=== PATIENT | female | born 1995 | race Two or more races ===

== ENCOUNTER 2016-06-28 06:28 | Inpatient (IN) ==
[2016-06-28] MEDS ORDERED: SODIUM CHLORIDE 1,000 ML IV STA ×2 (06:40→12:07)
[2016-06-28] MEDS ORDERED: ZOFRAN 4 MG/2 ML IVP STA (06:41)
[2016-06-28 06:53] LABS: BASOPHILS # (AUTO) 0.1 K/uL (0-0.2); BASOPHILS % (AUTO) 0.3 % (0.0-3.0); EOSINOPHILS % (AUTO) 0.2 % (0.0-7.0); HEMATOCRIT 40.3 % (37.0-47.0); HEMOGLOBIN 13.5 g/dl (12.0-16.0); IMMATURE GRANULOCYTE % (AUTO) 0.3 % (0.0-5.0); LYMPHOCYTES # (AUTO) 1.7 K/uL (0.60-3.4); LYMPHOCYTES % (AUTO) 8.5 (10.0-50.0); MEAN CORPUSCULAR HEMOGLOBIN 28.1 pg (27.0-31.0); MEAN CORPUSCULAR HGB CONC 33.5 (31.8-35.4); MONOCYTES # (AUTO) 1.1 K/uL (0.4-2.0); MONOCYTES % (AUTO) 5.4 (0-10); NEUTROPHILS # (AUTO) 16.9 K/ul (2.0-6.9); NEUTROPHILS % (AUTO) 85.3; PLATELET COUNT 302 10^3/uL (140-440); WHITE BLOOD COUNT 19.76 K/ul (4.6-10.2)
[2016-06-28] MEDS ORDERED: DILAUDID 1 MG/ML SYRINGE IVP STA ×2 (06:54→09:04)
--- NOTE | 2016-06-28 06:56 | ED.PDOC ---
General Stated Complaint: Patient is a 20 year old female who comes to the ER with onset of menses of 2 days ago with alot of vaginal bleeding with some clots. states her abdominal pain is severe. Has a history of sickle cell trait but does not feel like this her crisis pain, feels like a very bad period. Time Seen by Physician: 06:51 Mode of Arrival: Wheelchair Information Source: Patient, Family Exam Limitations: Clinical condition Nursing and Triage Documentation Reviewed and Agree: Yes <THALIA ROBERTS - Last Filed: 06/28/16 08:29> <ROWAN MARSHALL - Last Filed: 06/28/16 11:41> ED Provider: Dr. ROWAN MARSHALL (THALIA ROBERTS) (ROWAN MARSHALL) Chief Complaint: Abdominal Pain GI Complaint Exam - Abdominal Pain Complaint/Exam Onset: Gradual Duration: 2 days Symptoms Are: Still present Timing: Constant Initial Severity: Moderate Current Severity: Severe Location of Pain: Suprapubic Character: Reports: Aching, Throbbing, Cramping Aggravating: Reports: Position Alleviating: Reports: None Associated Signs and Symptoms: Reports: Vaginal bleeding, Nausea : 1 Para: 1 Hx Total # of Abortions (Spontaneous & Elective): 0 AAA Risk Factors: Reports: None Cardiac Risk Factors: Reports: None Ectopic Risk Factors: Reports: None Ovarian Torsion Risk Factors: Reports: None Surgical Obstruction Risk Factors: Reports: None Related Surgical History: Reports: None Abdominal Findings: Present: Peritoneal signs. Absent: Pulsatile mass, Abdominal distention, Unequal femoral pulses, Rebound tenderness Female Body Picture: 1 - area of pain and cramping. Differential Diagnoses: Appendicitis, Ectopic , Ovarian Cyst <THALIA ROBERTS - Last Filed: 06/28/16 08:29> Review of Systems - Review Of Systems Constitutional: Reports: Loss of appetite Respiratory: Reports: No symptoms Cardiac: Reports: No symptoms GI: Reports: Abdominal pain : Reports: Pain, Other (vaginal bleeding with clot) Neurological: Reports: Anxiety All Other Systems: Reviewed and Negative <THALIA ROBERTS - Last Filed: 06/28/16 08:29> Past Medical History - Past Medical History Previously Healthy: Yes Endocrine: Reports: None Cardiovascular: Reports: None Respiratory: Reports: None Hematological: Reports: None Gastrointestinal: Reports: None Genitourinary: Reports: None Neuro/Psych: Reports: None Musculoskeletal: Reports: None Cancer: Reports: None Last Menstrual Period: STARTED ON THURSDAY Other Pertinent Past Medical History: sickle cell-"trait I think because my father is white" - Surgical History General Surgical History: Reports: None, Other (cervical biopsys 7 years ago) - Family History Family History: Reports: Unknown - Social History Smoking Status: Current every day smoker, Heavy tobacco smoker Hx Substance Use: No Alcohol Screening: None - Immunizations Tetanus Shot up to Date: Yes <THALIA ROBERTS - Last Filed: 06/28/16 08:29> Physical Exam - Physical Exam Appearance: Ill-appearing Ill-appearing: Moderate Pain Distress: Severe Neck: Supple Respiratory: Airway patent Cardiovascular: Tachycardia GI/: Soft, Tender, Bowel sounds hypoactive Skin: Warm, Dry, Normal color Psychiatric: Anxious <THALIA ROBERTS - Last Filed: 06/28/16 08:29> Re-Evaluation - Re-Evaluation Time of Re-Evaluation: 11:39 (drinking soda, feeling some better) Status: Improved <ROWAN MARSHALL - Last Filed: 06/28/16 11:41> Physician Notification - Case Discussed Endorsed To/Discussed With: Dr. Marshall Time of Discussion: 07:10 <THALIA ORBERTS - Last Filed: 06/28/16 08:29> Critical Care Note - Critical Care Note Total Time (mins): 0 <THALIA ROBERTS - Last Filed: 06/28/16 08:29> Course - Course Hematology/Chemistry: 06/28/16 06:45 06/28/16 06:45 <THALIA ROBERST - Last Filed: 06/28/16 08:29> - Course Hematology/Chemistry: 06/28/16 06:45 06/28/16 06:45 <ROWAN MARSHALL - Last Filed: 06/28/16 11:41> - Course Orders, Labs, Meds: Lab Review 06/28/16 06/28/16 06:45 06:52 WBC 19.76 H RBC 4.80 Hgb 13.5 Hct 40.3 MCV 84.0 MCH 28.1 MCHC 33.5 RDW Coeff of Edgardo 13.9 Plt Count 302 Immature Gran % (Auto) 0.3 Neut % (Auto) 85.3 Lymph % (Auto) 8.5 L [place] % (Auto) 5.4 Eos % (Auto) 0.2 Baso % (Auto) 0.3 Immature Gran # (Auto) 0.1 Neut # 16.9 H Lymph # 1.7 [place] # 1.1 Eos # 0.0 Baso # 0.1 Sodium 143 Potassium 3.7 Chloride 107 Carbon Dioxide 23 Anion Gap 16.7 BUN 9 Creatinine 1.02 Estimated GFR (MDRD) 68.00 BUN/Creatinine Ratio 8.82 Glucose 114 H Calcium 9.3 Total Bilirubin 0.94 AST 19 ALT 13 Alkaline Phosphatase 71 Total Protein 7.7 Albumin 4.0 Globulin 3.7 Albumin/Globulin Ratio 1.08 Amylase 38 Lipase 5 L Serum , Qual Negative Orders Category Date Time Status NPO REMINDER: IMAGING ONCE CARE 06/28/16 09:04 Completed ED IV/MEDIPORT/POWERPORT .ONCE EMERGENCY 06/28/16 06:40 Active AMYLASE Stat LAB 06/28/16 06:52 Completed CBC W/ AUTO DIFF Stat LAB 06/28/16 06:45 Completed COMPREHENSIVE METABOLIC PANEL Stat LAB 06/28/16 06:45 Completed LIPASE Stat LAB 06/28/16 06:52 Completed SERUM Stat LAB 06/28/16 06:52 Completed UA [URINALYSIS C & S IF INDICATED] Stat LAB 06/28/16 08:42 Uncollected 0.9 % Sodium Chloride [Saline Flush] MEDS 06/28/16 06:40 Active 1 syr IVF PRN PRN Hydromorphone HCl [Dilaudid 1 mg/ml Syringe] MEDS 06/28/16 09:04 Discontinued 0.5 mg IVP ONCE STA Hydromorphone HCl [Dilaudid 1 mg/ml Syringe] MEDS 06/28/16 06:54 Discontinued 0.75 mg IVP ONCE STA Hydromorphone HCl [Dilaudid 1 mg/ml Syringe] MEDS 06/28/16 06:58 Discontinued 1 mg .ROUTE .STK-MED ONE Ondansetron HCl/Pf [Zofran 4 mg/2 ml] MEDS 06/28/16 06:41 Discontinued 4 mg IVP ONCE STA Sodium Chloride 0.9% [Sodium Chloride] 1,000 ml MEDS 06/28/16 06:[address] ABDOMEN/PELVIS W CONTRAST Stat RADS 06/28/16 09:[address] ABDOMEN/PELVIS WO CONTRAST Stat RADS 06/28/16 08:00 Completed Medications Generic Name Dose Route Start Last Admin Trade Name Freq PRN Reason Stop Dose Admin Sodium Chloride 1 syr 06/28/16 06:40 Saline Flush IVF PRN PRN To flush IV Discontinued Medications Generic Name Dose Route Start Last Admin Trade Name Freq PRN Reason Stop Dose Admin Hydromorphone HCl 0.75 mg 06/28/16 06:54 06/28/16 07:01 Dilaudid 1 Mg/Ml Syringe IVP 06/28/16 06:55 0.75 mg ONCE STA Administration Hydromorphone HCl 0.5 mg 06/28/16 09:04 06/28/16 09:44 Dilaudid 1 Mg/Ml Syringe IVP 06/28/16 09:05 0.5 mg ONCE STA Administration Sodium Chloride 1,000 mls @ 1,000 mls/hr 06/28/16 06:40 06/28/16 06:53 Sodium Chloride IV 06/28/16 07:39 1,000 mls/hr BOLUS STA Administration Ondansetron HCl 4 mg 06/28/16 06:41 06/28/16 06:57 Zofran 4 Mg/2 Ml IVP 06/28/16 06:42 4 mg ONCE STA Administration (THALIA ROBERTS) (ROWAN MARSHALL) Vital Signs: Temp Pulse Resp BP Pulse Ox 06/28/16 06:30 98.8 F 101 H 36 H 77/46 L 99 (THALIA ROBERTS) (ROWAN MARSHALL) Departure <THALIA ROBERTS - Last Filed: 06/28/16 08:29> - Departure Time of Disposition: 11:41 Pt referred to PMD for follow-up: Yes Disposition Discussed With: Patient, Family <ROWAN MARSHALL - Last Filed: 06/28/16 11:41> - Departure Disposition: HOME SELF-CARE Discharge Problem: Hb-SS disease with crisis Abdominal pain Qualifiers: Abdominal location: lower abdomen, unspecified Qualifier Code: (R10.30) Lower abdominal pain, unspecified Instructions: Dysmenorrhea (ED) Condition: Stable Additional Instructions: increase hydration Keep f/u with PMD Ibuprofen prn Allergies/Adverse Reactions: Allergies No Known Allergies Allergy (Verified 06/28/16 06:51) Home Medications: Ambulatory Orders Ibuprofen 800 mg PO Q8H PRN 04/06/16
[2016-06-28] MEDS ORDERED: DILAUDID 1 MG/ML SYRINGE ONE (06:58)
[2016-06-28 07:12] LABS: SERUM PREGNANCY INTERNAL QC INTERNAL QC VALID
[2016-06-28 07:13] LABS: ALBUMIN/GLOBULIN RATIO 1.08; ANION GAP 16.7; BILIRUBIN,TOTAL 0.94 mg/dL (0.00-1.20); BUN/CREATININE RATIO 8.82; CALCIUM 9.3 mg/dL (8.2-10.2); CREATININE 1.02 mg/dL (0.60-1.30); POTASSIUM 3.7 mmol/L (3.5-5.10); TOTAL PROTEIN 7.7 g/dL (6.4-8.2)
[2016-06-28 07:14] LABS: AMYLASE 38 U/L (25-115)
[2016-06-28 07:32] LABS: LIPASE 5 U/L (8-78)
--- NOTE | 2016-06-28 08:35 | CT ---
Exam: CT abdomen and pelvis without contrast. Clinical indication: Lower abdominal pain. Comparison is made to the prior study dated 12/16/2014. TECHNIQUE: Axial unenhanced CT images of the abdomen and pelvis were obtained followed by coronal a nd sagittal reformats. Findings: The study is extremely limited due to lack of intra-abdominal fat, oral contrast, and IV contrast. There is no free intra-abdominal gas or fluid. The liver, gallbladder, adrenals, pancreas, spleen, and kidneys are grossly unremarkable, given the limitations of an unenhanced CT. There are no obvious enlarged abdominal or pelvic lymph nodes, by size criteria. The uterus is grossly unremarkable, given the limitations of CT for evaluating them. The bilateral ovaries cannot be identified with certainty. The bowel is grossly unremarkable. The appendix cannot be visualized due to the above limitations. The visualized portions lower thorax are within normal limits. The visualized bony structures are unremarkable for the patient's age. Impression: 1. Limited study due to lack of intra-abdominal fat, oral contrast, and IV contrast. 2. Unable to visualize the appendix. 3. Grossly unremarkable CT of the abdomen and pelvis.
--- NOTE | 2016-06-28 09:59 | CT ---
EXAM: CT abdomen pelvis with contrast HISTORY: Lower abdominal pain, vaginal bleeding COMPARISON: 06/28/2016 TECHNIQUE: CT abdomen pelvis performed without intravenous contrast. Coronal and sagittal reformat nabor images obtained. FINDINGS: Lung bases clear. No free air. No acute abnormalities of the bones. Heart normal in si ze. Liver, gallbladder, pancreas, spleen, adrenals, kidneys appear normal. Aorta normal in caliber . Bladder appears normal. Uterus appears normal. Air noted in the vagina/vaginal fornix region. N o ascites or lymphadenopathy. Stomach appears normal. No dilated loops small bowel. Appendix not definitively visualized. Colon unremarkable. No inflammatory stranding identified in the abdomen p donna. IMPRESSION: No acute inflammatory process identified in the abdomen or pelvis.
[2016-06-28] MEDS: SODIUM CHLORIDE 1,000 ML IV SCH ×2 (12:33→18:47)
[2016-06-28 13:13] VITALS: BMI 20.4
[2016-06-28 14:19] LABS: BILIRUBIN,URINE Negative (NEGATIVE); KETONES,URINE 1+ (NEGATIVE); LEUKOCYTE ESTERASE ,URINE Trace (NEGATIVE); NITRITE,URINE Negative (NEGATIVE); PROTEIN,URINE Negative (NEGATIVE); URINE, BLOOD 3+ (NEGATIVE)
[2016-06-28 14:22] LABS: ADD URINE MICROSCOPIC YES; BACTERIA,URINE TRACE (NOT PRESENT)
[2016-06-28 14:35] LABS: COCAIN SCREEN,URINE NEGATIVE (NEGATIVE)
[2016-06-28] MEDS ORDERED: TORADOL ONE (18:32)
[2016-06-29 05:06] LABS: HEMATOCRIT 32.8 % (37.0-47.0); MEAN CORPUSCULAR HEMOGLOBIN 28.1 pg (27.0-31.0); MEAN CORPUSCULAR HGB CONC 33.5 (31.8-35.4); MEAN CORPUSCULAR VOLUME 83.9 fl (81.0-99.0); PLATELET COUNT 237 10^3/uL (140-440); RED BLOOD COUNT 3.91 10^6/ul (4.20-5.40); WHITE BLOOD COUNT 21.64 K/ul (4.6-10.2)
[2016-06-29 05:11] LABS: ANISOCYTOSIS NOT PRESENT (NOT PRESENT)
[2016-06-29 05:33] LABS: ALBUMIN 2.8 g/dL (3.4-5.0); ALBUMIN/GLOBULIN RATIO 0.97; ANION GAP 10.9; BILIRUBIN,TOTAL 0.6 mg/dL (0.00-1.20); BUN/CREATININE RATIO 8.53; CALCIUM 7.9 mg/dL (8.2-10.2); CREATININE 0.82 mg/dL (0.60-1.30); POTASSIUM 2.9 mmol/L (3.5-5.10); TOTAL PROTEIN 5.7 g/dL (6.4-8.2)
[2016-06-29] MEDS: SODIUM CHLORIDE 1,000 ML IV SCH (11:28)
[2016-06-29] MEDS: TORADOL IVP PRN (11:28)
[2016-06-29] MEDS ORDERED: K-DUR PO STA ×3 (14:23)
[2016-06-29] MEDS ORDERED: IMODIUM PO PRN (14:23)
[2016-06-29] MEDS ORDERED: K-DUR ONE (14:30)
--- NOTE | 2016-06-29 14:40 | PCM.PROG ---
Subjective: Patient admitted with sickle cell crisis and poly substance use. she is started having diarrhea since morning, still hurting in the belly, toradol helping potassium dropped, its been replaced now patient boy friend is in the room. Objective: Vitals: T=98.4 F, P=90, R=16, QH=806/65, SPO2=99 HEENT: Atraumatic, normocephalic, pallor present or icterus, still in pain, sleeping responds to verbal stimuli Neck: Neck supple, no JVD, no bruit no lymphadenopathy Lungs: Lungs bilateral air entry equal and clear no added sounds, no rhonchi or wheezing CVS: S1-S2 normal, no murmur or gallop, no S3 or S4 Abdomen: Abdomen soft and tender all over , hyper active bowels. no ascites or organomegaly Extremities: No edema, cyanosis, or clubbing Neurological: Awake alert and oriented x3, no motor deficit, cranial nerves II through XII are intact, no CVA Skin: Skin has no open lesions Plan: Assessment Acute sickle cell crisis hypokalemia drug use diarrhea drug with drawls PLAN Will give her potassium 60 meq po continue toradol 30 q 12 out of bed to chair and activity as tolerated
[2016-06-30] MEDS: SODIUM CHLORIDE 1,000 ML IV SCH ×2 (00:09→09:30)
[2016-06-30] MEDS: TORADOL IVP PRN (02:23)
[2016-06-30 04:52] LABS: BASOPHILS % (AUTO) 0.2 % (0.0-3.0); EOSINOPHILS % (AUTO) 0.3 % (0.0-7.0); HEMATOCRIT 30.2 % (37.0-47.0); HEMOGLOBIN 10.2 g/dl (12.0-16.0); IMMATURE GRANULOCYTE % (AUTO) 1.1 % (0.0-5.0); LYMPHOCYTES # (AUTO) 1.9 K/uL (0.60-3.4); LYMPHOCYTES % (AUTO) 16.1 (10.0-50.0); MEAN CORPUSCULAR HEMOGLOBIN 28.3 pg (27.0-31.0); MEAN CORPUSCULAR HGB CONC 33.8 (31.8-35.4); MEAN CORPUSCULAR VOLUME 83.7 fl (81.0-99.0); MONOCYTES # (AUTO) 0.8 K/uL (0.4-2.0); MONOCYTES % (AUTO) 6.8 (0-10); NEUTROPHILS # (AUTO) 9.1 K/ul (2.0-6.9); NEUTROPHILS % (AUTO) 75.5; PLATELET COUNT 215 10^3/uL (140-440); RED BLOOD COUNT 3.61 10^6/ul (4.20-5.40); WHITE BLOOD COUNT 12.08 K/ul (4.6-10.2)
[2016-06-30 05:19] LABS: ALBUMIN 2.3 g/dL (3.4-5.0); ALBUMIN/GLOBULIN RATIO 0.79; ANION GAP 10.4; BILIRUBIN,TOTAL 0.43 mg/dL (0.00-1.20); BUN/CREATININE RATIO 6.84; CALCIUM 7.9 mg/dL (8.2-10.2); CREATININE 0.73 mg/dL (0.60-1.30); POTASSIUM 3.4 mmol/L (3.5-5.10); TOTAL PROTEIN 5.2 g/dL (6.4-8.2)
[2016-06-30 06:17] VITALS: BP 105/64; TEMP 97.9
[2016-06-30] MEDS ORDERED: K-DUR PO STA (08:01)
--- NOTE | 2016-06-30 10:12 | PCM.PROG ---
Attending Provider: ATTENDING PROVIDER: Dr. ROWAN KEITA DATE OF SERVICE: 06/30/16 SUBJECTIVE: This 20 year old OTHER F was hospitalized 06/28/16. The patient states pain is better today, still having menstrual cramping. no fever, no chills. The patient is having no diarrhea this morning. The patient threatened to leave AMA last night as she was upset she was not receiving narcotic pain medication. The nurse discussed with the patient again the importance of staying as urine drug screen is positive for amphetamine/methamphetamine and is the reason we were not able to give narcotics at the given time. The patient decided to stay and not leave AMA. The patient was sleeping most of the day yesterday and not active which was also worrisome. REVIEW OF SYSTEMS: CONSTITUTIONAL: No fever, no chills. ENDOCRINE: No weight loss or weight gain. HEENT: No sinus drainage, no sore throat. CVS: No angina symptoms. No CHF symptoms. No palpitations. No atypical chest pain for CAD. No shortness of breath. RESPIRATORY: No cough, no hemoptysis. GI: No melena. Abdominal cramping due to menses. No nausea, no vomiting. : No hematuria. No polyuria. SKIN: No rash. No wounds. MUSCULOSKELETAL: No pain. LICENSE DISTRIBUTOR: No blackout, no dizziness. No headache. No double vision. PSYCHIATRIC: Not anxious; no depression. No suicidal thoughts. No homicidal thoughts. PHYSICAL EXAMINATION: GENERAL: Lying in bed in no distress. VITAL SIGNS: Temperature 97.9 F, Pulse 90, Respiratory Rate 20, BP 105/64, Pulse Ox 98% HEENT: Normocephalic, atraumatic. Mucosa is dry, pallor positive. NECK: No JVP, no carotid bruit. No lymphadenopathy. CARDIAC: S1, S2, no S3. No murmur, gallop or regurgitation. LUNGS: Clear to auscultation. ABDOMEN: Soft, non-tender. Bowel sounds active. No rigidity, guarding or CVA tenderness. EXTREMITIES: No clubbing, cyanosis or edema. NEUROLOGIC: Awake, alert and oriented x3. LYMPHATIC: No palpable lymph nodes SKIN: Not dry. Intact. MUSCULOSKELETAL: No joint swelling. LAB REVIEW: 06/30/16 04:50 06/30/16 04:50 06/30/16 04:50: WBC 12.08 H D, RBC 3.61 L, Hgb 10.2 L, Hct 30.2 L, MCV 83.7, MCH 28.3, MCHC 33.8, RDW Coeff of Edgardo 13.9, Plt Count 215, Immature Gran % (Auto ) 1.1, Neut % (Auto) 75.5, Lymph % (Auto) 16.1, [place] % (Auto) 6.8, Eos % (Auto) 0.3, Baso % (Auto) 0.2, Immature Gran # (Auto) 0.1, Neut # 9.1 H, Lymph # 1.9, [place] # 0.8, Eos # 0.0, Baso # 0.0, Sodium 141, Potassium 3.4 L, Chloride 111 H, Carbon Dioxide 23, Anion Gap 10.4, BUN 5 L, Creatinine 0.73, Estimated GFR (MDRD ) 100.00, BUN/Creatinine Ratio 6.84, Glucose 76, Calcium 7.9 L, Total Bilirubin 0.43, AST 22, ALT 17, Alkaline Phosphatase 65, Total Protein 5.2 L, Albumin 2.3 L, Globulin 2.9, Albumin/Globulin Ratio 0.79 ASSESSMENT: 1. Acute sickle cell crisis 2. Hypokalemia 3. Drug use 4. Diarrhea 5. Drug withdrawal PLAN: 1. Potassium extra 40 mEq this am 2. IV fluids fluids 3. Regular diet 4. Out of bed to chair 5. Activity as tolerates 6. Possible discharge to home to be followed at the [facility] Plan and coordination of the patient's care discussed in the presence of Turbine Subassembler and nurse. EDUCATION: Discussed risks of drug abuse and offered rehabilitation to the patient. She is not interested at this time. CONDITION: Stable SCRIBED BY: DAISY DIEZ, Trade Show Manager scribed while in presence of service performed by Dr. ROWAN KEITA on 06/30/16 ([id number])
--- NOTE | 2016-07-02 13:42 | AMA ---
HISTORY: After finishing the rounds that patient decided as we are not giving any narcotic pain medication she threatened the nurse that she is going to walk away. By the time the nurse went to talk to the patient again she left from the room. The patient did have IV line in the arm. They informed the police judge about his incident. SARA
--- NOTE | 2016-08-14 15:41 | PN ---
DATE OF SERVICE: 06/28/16 ADMISSION NOTE SUBJECTIVE: The patient was seen and examined in the ER and I agree with the plan. REVIEW OF SYSTEMS: CONSTITUTIONAL: No fever, no chills. HEENT: Normal. ENDOCRINE: No weight gain, no weight loss. CVS: No angina symptoms. No CHF symptoms. No palpitations. No atypical chest pain for CAD. No shortness of breath. No PND, no orthopnea. RESPIRATORY: No cough, no hemoptysis. GI: No nausea, no vomiting. Abdominal pain. Loss of appetite. : No hematuria. No polyuria. Pain, vaginal bleeding with clot. MUSCULOSKELETAL:. No joint swelling. PSYCHIATRIC: Anxious. No depression. No suicidal thoughts. No homicidal thoughts. SKIN: Intact. No rash. PHYSICAL EXAMINATION: V/S: Temperature 98.8, pulse 101, respiratory 36, blood pressure 77/46 and pulse ox 99%. GENERAL: The patient is ill appearing. HEENT: Normocephalic, atraumatic. Ears, eyes, nose and throat normal. NECK: Supple. No JVD, no carotid bruit. No lymphadenopathy. LUNGS: Clear to auscultation. No rales or rhonchi. HEART: Tachycardiac. S1, S2 normal. No S3. No murmur, gallop or regurgitation. ABDOMEN: Soft, tender. Bowel sounds active. No rigidity. No rebound or guarding. No CVA tenderness. EXTREMITIES: No clubbing, cyanosis or pedal edema. MUSCULOSKELETAL: No joint swelling. NEUROLOGIC: Awake, alert, oriented times three. No focal deficit. LYMPHATIC: No lymph nodes palpable. SKIN: Intact. LABS: WBC 19.76, Hgb 13.5, plt count 302, Sodium 143, potassium 3.7, chloride 107, bicarb 23, BUN 9, creatinine 1.02 and glucose 114. ASSESSMENT: 1. Acute sickle cell crisis 2. Abdominal pain 3. Hypokalemia 4. Drug use 5. Diarrhea 6. Drug withdrawal PLAN: 1. Admit to regular 2. CBC and CMP 3. Telemetry TIME SPENT: More than 30 minutes MTDD
== END 2016-06-30 09:30 | disposition left against medical advice (07) | DRG 812 ==
LOC: ED 06:28 → MEDSURG B 12:21
PROVIDERS: ADMIT Emergency Medicine; ATTEND Emergency Medicine
DX: D57.819 Other sickle-cell disorders with crisis, unspecified (principal); F15.93 Other stimulant use, unspecified with withdrawal; R10.30 Lower abdominal pain, unspecified; F17.210 Nicotine dependence, cigarettes, uncomplicated; R19.7 Diarrhea, unspecified; E87.6 Hypokalemia
CPT/HCPCS: 36415; 80053; 80306; 81001; 82150; 83690; 84703; 85007; 85025; 96361; 96374; 96375; 96376; 99233; 99284

== ENCOUNTER 2016-11-05 11:11 | Emergency (ER) ==
[2016-11-05 11:15] VITALS: BP 115/72; TEMP 97.9; BMI 19.8
--- NOTE | 2016-11-05 11:34 | ED.PDOC ---
General ED Provider: Dr. CHULA ESPINOZA JR Chief Complaint: Headache Stated Complaint: pt complains of headache for 2 days. has had fever and vomiting. [ End ]2 days 97.8 91 18 99% 115/72 10 Time Seen by Physician: 11:33 Mode of Arrival: Walk-In Information Source: Patient Exam Limitations: No limitations Nursing and Triage Documentation Reviewed and Agree: No Review of Systems - Review Of Systems Constitutional: Reports: No symptoms Eyes: Reports: Photophobia Ears, Nose, Mouth, Throat: Reports: No symptoms Respiratory: Reports: No symptoms Cardiac: Reports: No symptoms GI: Reports: No symptoms : Reports: No symptoms Musculoskeletal: Reports: No symptoms Skin: Reports: No symptoms Neurological: Reports: Headache Endocrine: Reports: No symptoms Hematologic/Lymphatic: Reports: No symptoms All Other Systems: Other Past Medical History - Past Medical History Previously Healthy: Yes Endocrine: Reports: None Cardiovascular: Reports: None Respiratory: Reports: None Hematological: Reports: Sickle Cell Gastrointestinal: Reports: None Genitourinary: Reports: None Neuro/Psych: Reports: None Musculoskeletal: Reports: None Cancer: Reports: None Last Menstrual Period: last month Other Pertinent Past Medical History: sickle cell-"trait I think because my father is white" - Surgical History General Surgical History: Reports: , Other (cervical biopsys 7 years ago) - Family History Family History: Reports: Unknown - Social History Smoking Status: Current every day smoker, Heavy tobacco smoker Hx Substance Use: No Alcohol Screening: None Physical Exam - Physical Exam Appearance: Well-appearing Pain Distress: Moderate Eyes: JEFF, EOMI, Conjunctiva clear ENT: Ears normal, Nose normal, Oropharynx normal Neck: Supple Respiratory: Airway patent, Breath sounds clear, Breath sounds equal, Respirations nonlabored Cardiovascular: RRR, Pulses normal, No rub, No murmur GI/: Soft, Nontender, No masses, Bowel sounds normal, No Organomegaly Musculoskeletal: Normal strength, ROM intact, No edema, No calf tenderness Skin: Warm, Dry, Normal color Neurological: Sensation intact, Motor intact, Reflexes intact, Cranial nerves intact, Alert, Oriented Psychiatric: Affect appropriate, Mood appropriate Interpretation - Radiology Interpretation Radiology Interpretation By: Radiologist Radiology Results: Positive Exam Interpreted: CT Scan (normal brain-- ethmoid and sphenoid sinusitis) Critical Care Note - Critical Care Note Total Time (mins): 5 Course - Course Hematology/Chemistry: 11/05/16 12:08 11/05/16 12:08 Orders, Labs, Meds: Lab Review 11/05/16 12:08 WBC 12.29 H RBC 4.93 Hgb 14.4 Hct 41.9 MCV 85.0 MCH 29.2 MCHC 34.4 RDW Coeff of Edgardo 13.4 Plt Count 300 Immature Gran % (Auto) 0.2 Neut % (Auto) 72.1 Lymph % (Auto) 21.2 [place] % (Auto) 5.5 Eos % (Auto) 0.7 Baso % (Auto) 0.3 Immature Gran # (Auto) 0.0 Neut # 8.9 H Lymph # 2.6 [place] # 0.7 Eos # 0.1 Baso # 0.0 Sodium 140 Potassium 3.3 L Chloride 105 Carbon Dioxide 23 Anion Gap 15.3 BUN 6 L Creatinine 0.86 Estimated GFR (MDRD) 82.00 BUN/Creatinine Ratio 6.97 Glucose 94 Calcium 9.1 Total Bilirubin 0.38 AST 14 L ALT 9 L Alkaline Phosphatase 55 Total Protein 6.9 Albumin 3.9 Globulin 3.0 Albumin/Globulin Ratio 1.30 Serum , Qual Negative Orders Category Date Time Status ED APPLY O2 .ONCE EMERGENCY 11/05/16 11:36 Active BLOOD CULTURE Stat LAB 11/05/16 12:08 Received CBC W/ AUTO DIFF Stat LAB 11/05/16 12:08 Completed COMPREHENSIVE METABOLIC PANEL Stat LAB 11/05/16 12:08 Completed SERUM TEST [SERUM ] Stat LAB 11/05/16 12:08 Completed Morphine Sulfate [Morphine 4 mg/ml Syringe] MEDS 11/05/16 11:36 Discontinued 4 mg IM ONCE STA Ondansetron HCl/Pf [Zofran 4 mg/2 ml] MEDS 11/05/16 11:36 Discontinued 4 mg IM ONCE STA Oxymetazoline HCl [Afrin Nasal [place]] MEDS 11/05/16 13:49 Discontinued 2 spray EMELY ONCE STA Tramadol HCl [Ultram] MEDS 11/05/16 12:03 Discontinued 50 mg PO ONCE STA Tramadol HCl [Ultram] MEDS 11/05/16 13:51 Discontinued 50 mg PO ONCE STA CHEST, 2 VIEWS PA & LAT Stat RADS 11/05/16 11:[address] HEAD W/O CONTRAST Stat RADS 11/05/16 11:35 Completed Medications Discontinued Medications Generic Name Dose Route Start Last Admin Trade Name Freq PRN Reason Stop Dose Admin Morphine Sulfate 4 mg 11/05/16 11:36 11/05/16 12:12 Morphine 4 Mg/Ml Syringe IM 11/05/16 11:37 4 mg ONCE STA Administration Ondansetron HCl 4 mg 11/05/16 11:36 11/05/16 12:13 Zofran 4 Mg/2 Ml IM 11/05/16 11:37 4 mg ONCE STA Administration Oxymetazoline HCl 2 spray 11/05/16 13:49 11/05/16 14:13 Afrin Nasal [place] EMELY 11/05/16 13:50 2 spray ONCE STA Administration Tramadol HCl 50 mg 11/05/16 12:03 11/05/16 12:14 Ultram PO 11/05/16 12:04 Not Given ONCE STA Tramadol HCl 50 mg 11/05/16 13:51 11/05/16 14:13 Ultram PO 11/05/16 13:52 50 mg ONCE STA Administration Vital Signs: Temp Pulse Resp BP Pulse Ox 11/05/16 11:11 97.9 F 91 H 18 115/72 99 Departure - Departure Time of Disposition: 13:40 Disposition: HOME SELF-CARE Discharge Problem: Headache, Acute sphenoidal sinusitis, Sinusitis, acute Instructions: Acute Headache (ED), Sinusitis (ED), Rhinosinusitis (ED) Condition: Good Pt referred to PMD for follow-up: Yes Additional Instructions: antihistamine daily for two weeks then as needed for congestion may use benadryl or benadryl cold and allergy four times a day or claritin-D twice a day decongestant is recommended(sudafed claritin D etc) recheck PMD one week; sooner if fever or worsening of headache Prescriptions: Loratadine/Pseudoephedrine [Claritin-D 12 Hour Tablet] 1 each PO BID PRN #60 tab.er.12h PRN Reason: Allergy Symptoms Allergies/Adverse Reactions: Allergies No Known Allergies Allergy (Verified 11/05/16 11:15) Home Medications: Ambulatory Orders Loratadine/Pseudoephedrine [Claritin-D 12 Hour Tablet] 1 each PO BID PRN #60 tab.er.12h 11/05/16
[2016-11-05] MEDS: MORPHINE 4 MG/ML SYRINGE IM STA ×2 (12:02→12:12)
[2016-11-05] MEDS: ZOFRAN 4 MG/2 ML IM STA ×2 (12:02→12:13)
[2016-11-05] MEDS ORDERED: ULTRAM PO STA ×2 (12:03→13:51)
[2016-11-05 12:19] LABS: BASOPHILS % (AUTO) 0.3 % (0.0-3.0); EOSINOPHILS # (AUTO) 0.1 K/ul (0.0-0.7); EOSINOPHILS % (AUTO) 0.7 % (0.0-7.0); HEMATOCRIT 41.9 % (37.0-47.0); HEMOGLOBIN 14.4 g/dl (12.0-16.0); IMMATURE GRANULOCYTE % (AUTO) 0.2 % (0.0-5.0); LYMPHOCYTES # (AUTO) 2.6 K/uL (0.60-3.4); LYMPHOCYTES % (AUTO) 21.2 (10.0-50.0); MEAN CORPUSCULAR HEMOGLOBIN 29.2 pg (27.0-31.0); MEAN CORPUSCULAR HGB CONC 34.4 (31.8-35.4); MONOCYTES # (AUTO) 0.7 K/uL (0.4-2.0); MONOCYTES % (AUTO) 5.5 (0-10); NEUTROPHILS # (AUTO) 8.9 K/ul (2.0-6.9); NEUTROPHILS % (AUTO) 72.1; PLATELET COUNT 300 10^3/uL (140-440); RED BLOOD COUNT 4.93 10^6/ul (4.20-5.40); WHITE BLOOD COUNT 12.29 K/ul (4.6-10.2)
[2016-11-05 12:43] LABS: ALBUMIN 3.9 g/dL (3.4-5.0); ALBUMIN/GLOBULIN RATIO 1.3; ANION GAP 15.3; BILIRUBIN,TOTAL 0.38 mg/dL (0.00-1.20); BUN/CREATININE RATIO 6.97; CALCIUM 9.1 mg/dL (8.2-10.2); CREATININE 0.86 mg/dL (0.60-1.30); POTASSIUM 3.3 mmol/L (3.5-5.10); TOTAL PROTEIN 6.9 g/dL (6.4-8.2)
[2016-11-05 12:47] LABS: SERUM PREGNANCY INTERNAL QC INTERNAL QC VALID
--- NOTE | 2016-11-05 13:10 | DI ---
Exam: Two x-rays of the chest. Comparison: None available. Reason for exam: Cough. FINDINGS: No pneumothorax, pleural effusion, or focal consolidation. The cardiac silhouette is not enlarged. The imaged osseous structures are unremarkable without acute fracture. Impression: No acute cardiopulmonary process.
--- NOTE | 2016-11-05 13:29 | CT ---
EXAM: CT head without contrast. HISTORY: Headache. COMPARISON: None available. TECHNIQUE: Multiple axial images of the brain were obtained from the skull base through the vertex without intravenous contrast. FINDINGS: There is no intracranial hemorrhage or extraaxial collection. The luke-white differentia tion is maintained without evidence for acute large vascular territory infarction. The cortical sul ci and basal cisterns are well visualized. There is no hydrocephalus, mass effect, or midline shift . Small amount of mucus present in the ethmoid and sphenoid sinuses. Otherwise, the paranasal sinu ses and mastoid air cells are clear. The calvarium is intact. IMPRESSION: 1. No acute intracranial abnormality. 2. Mild sinusitis.
[2016-11-05] MEDS ORDERED: AFRIN NASAL SPRAY NAS STA (13:49)
== END 2016-11-05 15:05 | disposition home or self-care (01) ==
LOC: ED 11:11
DX: J01.30 Acute sphenoidal sinusitis, unspecified (principal); F17.210 Nicotine dependence, cigarettes, uncomplicated
CPT/HCPCS: 36415; 80053; 84703; 85025; 87040; 96372; 99283

== ENCOUNTER 2016-11-07 00:53 | Emergency (ER) ==
[2016-11-07] MEDS ORDERED: ZOFRAN ODT PO STA (01:02)
[2016-11-07 01:05] VITALS: BP 108/73; TEMP 99.8; BMI 20.1
--- NOTE | 2016-11-07 01:05 | ED.PDOC ---
General ED Provider: Dr. THALIA ROBERTS Chief Complaint: Headache Stated Complaint: Patient states she was seen in the Er two days ago for migranes. Was given a prescription for antibiotics but could not afford it. She return with Headach and photophobia. Time Seen by Physician: 01:03 Mode of Arrival: Walk-In Information Source: Patient Exam Limitations: No limitations Nursing and Triage Documentation Reviewed and Agree: Yes Neurological Complaint Exam - Headache Complaint/Exam Onset: Gradual Duration: 2 days Symptoms Are: Still present Timing: Constant Worst Headache Ever: Yes Initial Severity: Moderate Current Severity: Severe Location: Diffuse Character: Reports: Throbbing Aggravating: Reports: Bright lights Alleviating: Reports: None Associated Signs and Symptoms: Reports: Nausea. Denies: Dizziness, Seizure, Vomiting, Sinus pressure, Fever, Neck pain, Neck stiffness, Decreased LOC, Visual changes Related History: Denies: Similar episode, Recent trauma, Remote trauma Related Surgical History: Reports: None SAH Risk Factors: Reports: -[place], Smoking. Denies: Family history, Hypertension, Polycystic Kidney Disease, Alcohol abuse Meningitis Risk Factors: Reports: None SDH Risk Factors: Reports: None Temporal Arteritis Risk Factors: Reports: Female. Denies: , Over 60 years old, Polymyalgia Rheumatica Normal Head CT Within Last 12 Months: No Fundoscopic Exam: Present: Normal Findings Papilledema Present: No Temporal Artery Tenderness: Present: None Sinus Tenderness: Present: None TMJ Tenderness: Present: None Glascow Coma Scale (see protocol): 15 Meningeal Signs Positive: No Pain on Passive Flexion-Positive Kernig's: No ROM Limited In: No Limitiations Focal Weakness: Present: None Focal Sensory Loss: Present: None Gait: Normal Nystagmus Present: No Gag Reflex Present: Yes Gjggos-qu-Balc: Normal Findings Romberg Test Positive: No Heel to Toe Normal: Yes Differential Diagnoses: Migraine, Tension Headache, Viral Syndrome Review of Systems - Review Of Systems Constitutional: Reports: No symptoms Eyes: Reports: No symptoms Ears, Nose, Mouth, Throat: Reports: No symptoms Respiratory: Reports: No symptoms Cardiac: Reports: No symptoms GI: Reports: No symptoms : Reports: No symptoms Musculoskeletal: Reports: No symptoms Skin: Reports: No symptoms Neurological: Reports: Anxiety, Headache Endocrine: Reports: No symptoms Hematologic/Lymphatic: Reports: No symptoms All Other Systems: Reviewed and Negative Past Medical History - Past Medical History Previously Healthy: Yes Endocrine: Reports: None Cardiovascular: Reports: None Respiratory: Reports: None Hematological: Reports: Sickle Cell Gastrointestinal: Reports: None Genitourinary: Reports: None Neuro/Psych: Reports: None Musculoskeletal: Reports: None Cancer: Reports: None Other Pertinent Past Medical History: sickle cell-"trait I think because my father is white" - Surgical History General Surgical History: Reports: , Other (cervical biopsys 7 years ago) - Family History Family History: Reports: Unknown - Social History Smoking Status: Current every day smoker, Heavy tobacco smoker Hx Substance Use: No Alcohol Screening: None Physical Exam - Physical Exam Appearance: Ill-appearing, Well-nourished Ill-appearing: Mild Pain Distress: Severe Eyes: JEFF, EOMI, Conjunctiva clear ENT: Ears normal, Nose normal, Oropharynx normal Neck: Supple Respiratory: Airway patent, Breath sounds clear, Breath sounds equal, Respirations nonlabored Cardiovascular: RRR, Pulses normal, No rub, No murmur GI/: Soft, Nontender, No masses, Bowel sounds normal, No Organomegaly Musculoskeletal: Normal strength, ROM intact, No edema, No calf tenderness Skin: Warm, Dry, Normal color Neurological: Sensation intact, Motor intact, Reflexes intact, Cranial nerves intact, Alert, Oriented Psychiatric: Affect appropriate, Mood appropriate Re-Evaluation - Re-Evaluation Time of Re-Evaluation: 01:45 Status: Improved Vital Signs Stable: Yes Pain Level: better Critical Care Note - Critical Care Note Total Time (mins): 0 Course - Course Orders, Labs, Meds: Orders Category Date Time Status Ketorolac Tromethamine [Toradol] MEDS 11/07/16 01:21 Discontinued 20 mg PO ONCE STA Ketorolac Tromethamine [Toradol] MEDS 11/07/16 01:02 Discontinued 60 mg IM ONCE STA Ondansetron [Zofran Odt] MEDS 11/07/16 01:02 Discontinued 4 mg PO ONCE STA Sumatriptan Succinate [Imitrex] MEDS 11/07/16 01:04 Discontinued 6 mg SUBCUT ONCE STA Medications Discontinued Medications Generic Name Dose Route Start Last Admin Trade Name Freq PRN Reason Stop Dose Admin Ketorolac Tromethamine 60 mg 11/07/16 01:02 11/07/16 01:22 Toradol IM 11/07/16 01:03 Not Given ONCE STA Ketorolac Tromethamine 20 mg 11/07/16 01:21 11/07/16 01:24 Toradol PO 11/07/16 01:22 20 mg ONCE STA Administration Ondansetron HCl 4 mg 11/07/16 01:02 11/07/16 01:15 Zofran Odt PO 11/07/16 01:03 4 mg ONCE STA Administration Sumatriptan Succinate 6 mg 11/07/16 01:04 11/07/16 01:21 Imitrex SUBCUT 11/07/16 01:05 Not Given ONCE STA Vital Signs: Temp Pulse Resp BP Pulse Ox 11/07/16 00:57 99.8 F H 81 20 108/73 100 Departure - Departure Time of Disposition: 01:47 Disposition: HOME SELF-CARE Discharge Problem: Headache Head ache Qualifiers: Headache type: tension-type Headache chronicity pattern: acute headache Intractability: not intractable Qualifier Code: (G44.209) Tension-type headache , unspecified, not intractable Instructions: Tension Headache (ED) Condition: Stable Pt referred to PMD for follow-up: Yes Additional Instructions: Push fluids Follow up with PCP in 3 days Prescriptions: Butalb/Acetaminophen/Caffeine [Fioricet] 1 each PO TID PRN #14 tablet PRN Reason: Headache Allergies/Adverse Reactions: Allergies No Known Allergies Allergy (Verified 11/07/16 01:06) Home Medications: Ambulatory Orders Loratadine/Pseudoephedrine [Claritin-D 12 Hour Tablet] 1 each PO BID PRN #60 tab.er.12h 11/05/16 Butalb/Acetaminophen/Caffeine [Fioricet] 1 each PO TID PRN #14 tablet 11/07/16 Disposition Discussed With: Patient, Family
[2016-11-07] MEDS: IMITREX SUBCUT STA ×2 (01:15→01:21)
[2016-11-07] MEDS: TORADOL IM STA ×2 (01:15→01:22)
[2016-11-07] MEDS ORDERED: TORADOL PO STA (01:21)
== END 2016-11-07 01:47 | disposition home or self-care (01) ==
LOC: ED 00:53
DX: G44.209 Tension-type headache, unspecified, not intractable (principal); F17.210 Nicotine dependence, cigarettes, uncomplicated
CPT/HCPCS: 99282

== ENCOUNTER 2017-10-08 14:16 | Outpatient (CLI) | END 2017-10-08 14:17 | disposition home or self-care (01) | LOC: RHC-LAB 14:16 | PROVIDERS: ATTEND Nurse Practitioner Family | DX: D57.1 Sickle-cell disease without crisis (principal); R00.2 Palpitations | CPT/HCPCS: 36415; 80053; 80061; 82607; 82728; 82746; 83540; 83550; 84443; 84466; 85025; 85045 ==

== ENCOUNTER 2018-08-01 13:04 | Emergency (ER) ==
[2018-08-01 13:08] VITALS: BP 111/70; TEMP 98.5; BMI 19.7
--- NOTE | 2018-08-01 13:17 | ED.PDOC ---
General ED Provider: Dr. BIB ESTEVES-ER Chief Complaint: Rash Stated Complaint: mike had this rash for 5 years---my bf dx with tinea versicolor Time Seen by Physician: 13:15 Mode of Arrival: Walk-In Information Source: Patient Exam Limitations: No limitations Nursing and Triage Documentation Reviewed and Agree: Yes Does patient meet sepsis criteria?: No System Inflammatory Response Syndrome: Not Applicable Sepsis Protocol: For patient's 13 years and over: Temp is 96.8 and below OR 101 and greater Pulse >90 BPM Resp >20/minute Acutely Altered Mental Status Are patient's symptoms suggestive of a new infection, such as: -Pneumonia -Skin, Soft Tissue -Endocarditis -UTI -Bone, Joint Infection -Implantable Device -Acute Abdominal Infection -Wound Infection -Meningitis -Blood Stream Catheter Infection -Unknown Skin Complaint Exam - Skin Rash/Itching Complaint/Exam Onset/Duration: 5 years Symptoms Are: Still present Initial Severity: Mild Current Severity: Mild Location: trunk, neck and back Potential Exposures: Reports: Other Aggravating: Reports: None Alleviating: Reports: None Associated Signs and Symptoms: Denies: Difficulty breathing, Fever, Chills Skin Findings: Present: Dry scaly skin Differential Diagnoses: Tinea Review of Systems - Review Of Systems Constitutional: Reports: No symptoms Eyes: Reports: No symptoms Ears, Nose, Mouth, Throat: Reports: No symptoms Respiratory: Reports: No symptoms Cardiac: Reports: No symptoms GI: Reports: No symptoms : Reports: No symptoms Musculoskeletal: Reports: No symptoms Skin: Reports: Rash Neurological: Reports: No symptoms Endocrine: Reports: No symptoms Hematologic/Lymphatic: Reports: No symptoms All Other Systems: Reviewed and Negative Past Medical History - Past Medical History Previously Healthy: Yes Endocrine: Reports: None Cardiovascular: Reports: None Respiratory: Reports: None Hematological: Reports: Sickle Cell Gastrointestinal: Reports: None Genitourinary: Reports: None Neuro/Psych: Reports: None Musculoskeletal: Reports: None Cancer: Reports: None Last Menstrual Period: now Other Pertinent Past Medical History: sickle cell-"trait I think because my father is white" - Surgical History General Surgical History: Reports: , Other (cervical biopsys 7 years ago) - Family History Family History: Reports: Unknown - Social History Smoking Status: Current every day smoker, Heavy tobacco smoker Hx Substance Use: No Alcohol Screening: None Physical Exam - Physical Exam Appearance: Well-appearing, No pain distress, Well-nourished Eyes: JEFF, EOMI, Conjunctiva clear ENT: Ears normal, Nose normal, Oropharynx normal Neck: Supple Respiratory: Airway patent, Breath sounds clear, Breath sounds equal, Respirations nonlabored Cardiovascular: RRR, Pulses normal, No rub, No murmur GI/: Soft, Nontender, No masses, Bowel sounds normal, No Organomegaly Musculoskeletal: Normal strength, ROM intact, No edema, No calf tenderness Skin: Warm, Dry, Normal color (noted patchy macular rash over back and neck) Neurological: Sensation intact, Motor intact, Reflexes intact, Cranial nerves intact, Alert, Oriented Psychiatric: Affect appropriate Critical Care Note - Critical Care Note Total Time (mins): 0 Course - Course Vital Signs: Temp Pulse Resp BP Pulse Ox 08/01/18 13:05 98.5 F 80 20 111/70 99 Departure - Departure Time of Disposition: 13:17 Disposition: HOME SELF-CARE Discharge Problem: Tinea versicolor Instructions: Tinea Versicolor (ED) Condition: Good Pt referred to PMD for follow-up: Yes IPMP verified?: No Additional Instructions: nizoral 400mg , then nizoral cream apply q hs x 14 days==f/u with pcp Allergies/Adverse Reactions: Allergies No Known Allergies Allergy (Verified 08/01/18 13:08) Home Medications: Ambulatory Orders 1 [No Reported Medications] 08/01/18 Disposition Discussed With: Patient, Family
== END 2018-08-01 13:25 | disposition home or self-care (01) ==
LOC: ED 13:04
DX: B36.0 Pityriasis versicolor (principal); F17.210 Nicotine dependence, cigarettes, uncomplicated
CPT/HCPCS: 99282